=== PATIENT | female | born 1945 | race Two or more races ===

== ENCOUNTER 2019-12-28 12:15 | Inpatient (IN) | payer OTHER ==
[~2019-12-28] VITALS: Ht 144.8 cm; Wt 41.7 kg
[2019-12-29] MEDS ORDERED: NOXIFOL-D32500 UNIT PO (13:12)
[2019-12-29] MEDS ORDERED: FOSAMAX70 MG PO (13:12)
[2019-12-29] MEDS ORDERED: ZESTRIL20 MG PO (13:12)
== END 2020-01-07 08:55 | DRG 735 ==
LOC: O/R 01-05 06:55 → OB/GYN 01-05 06:55 → SURH 01-05 09:45 → OB/GYN 01-05 16:41
PROVIDERS: ADMIT Obstetrics & Gynecology Gynecologic Oncology; ATTEND Obstetrics & Gynecology Gynecologic Oncology
PROC: 0UT90ZZ Resection of Uterus, Open Approach (ICD-10-PCS; 2020-01-05)
PROC: 0UT20ZZ Resection of Bilateral Ovaries, Open Approach (ICD-10-PCS; 2020-01-05)
PROC: 0UT70ZZ Resection of Bilateral Fallopian Tubes, Open Approach (ICD-10-PCS; 2020-01-05)
PROC: 0DTU0ZZ Resection of Omentum, Open Approach (ICD-10-PCS; 2020-01-05)
PROC: 07TC0ZZ Resection of Pelvis Lymphatic, Open Approach (ICD-10-PCS; principal; 2020-01-05 15:30)
DX: N83.8 Other noninflammatory disorders of ovary, fallopian tube and broad ligament (principal); D28.2 Benign neoplasm of uterine tubes and ligaments; N88.8 Other specified noninflammatory disorders of cervix uteri